=== PATIENT | male | born 1950 | race Caucasian/White ===

== ENCOUNTER 2022-07-05 19:34 | Inpatient (IN) | payer MEDICARE, BC ==
[~2022-07-05] VITALS: Ht 188 cm; Wt 165.3 kg
[2022-07-05 22:34] LABS: Hematocrit 19.7 % (41.0-53.0); Mean Corpuscular Hemoglobin 30.9 pg (28.0-32.0); Mean Corpuscular Hgb Conc. 33.7 g/dL (32.0-36.0); Mean Corpuscular Volume 91.6 fL (80.0-100.0); Red Blood Cells 2.15 10^6/uL (4.5-5.90); Red Cell Distribution Width 15.5 % (11.8-14.3); White Blood Cell 11.8 10^3/uL (4.4-10.8)
[2022-07-05 22:45] LABS: Hemoglobin 6.6 g/dL (13.5-17.5)
[2022-07-05 22:46] LABS: Albumin 3.3 g/dL (3.4-5.0); BUN/Creatinine Ratio 17.5; Calcium 8.4 mg/dL (8.5-10.1); Potassium 4.3 mmol/L (3.5-5.1)
[2022-07-05 22:49] LABS: Bilirubin, Total 0.7 mg/dL (0.2-1.0); Total Protein 6.5 g/dL (6.4-8.2)
[2022-07-05 22:56] LABS: INR 1.24 (0.9-1.15); Partial Thromboplastin Time 28.4 sec (24.6-33.4)
[2022-07-05 23:33] LABS: Band Neutrophils % (manual) 8; Basophils % (manual) 0 (0.0-2.0); Blast Cells 0; Eosinophils % (manual) 1 (0-7); Lymphocytes % (manual) 9 (10.0-50.0); Monocytes % (manual) 4 (0-12); Promyelocytes % 0; Reactive Lymphocytes 0
[2022-07-05 23:34] LABS: Metamyelocytes % 3; Myelocytes % 4
[2022-07-06] VITALS (7 sets, daily range): BP systolic 119–143; BP diastolic 64–87
[2022-07-06] MEDS ORDERED: ACETAMINOPHEN 325 MG TAB PO PRN (08:15)
[2022-07-06] MEDS ORDERED: DOCUSATE SOD 100 MG CAP PO PRN (08:15)
[2022-07-06] MEDS ORDERED: HYDROcodone-ACET 5/325MG TAB PO PRN (08:15)
[2022-07-06] MEDS ORDERED: ONDANSETRON HCL 4 MG/2 ML VIAL IV PRN (08:15)
[2022-07-06] MEDS ORDERED: MORPHINE SULFATE INJ 2 MG/ml SYRG IV PRN (08:15)
[2022-07-06] MEDS ORDERED: LORazepam 0.5 MG TAB PO PRN (08:15)
[2022-07-06] MEDS ORDERED: POLYETHYLENE GLYCOL 17 GM PWDR PO PRN (08:30)
[2022-07-06] MEDS ORDERED: FUROSEMIDE 20 MG/2 ML VIAL IV ONE (08:30)
[2022-07-06 09:04] LABS: Urine Bacteria NONE SEEN /hpf (None Seen); Urine Blood 1+ /uL (Negative); Urine Mucus FEW (None Seen); Urine WBC 7 /hpf (0 - 3)
[2022-07-06 09:06] LABS: Protein, Urine 41.2 mg/dL (0.0-11.9)
[2022-07-06] MEDS: PANTOPRAZOLE 40 MG TAB PO SCH ×2 (09:35→22:00)
[2022-07-06 10:06] LABS: Thyroid Stimulating Hormone 3.46 uIU/mL (0.358-3.74)
[2022-07-06 10:19] LABS: % Iron Saturation 30.9 % (20-55)
[2022-07-06] MEDS ORDERED: APIX5TAB PO (10:20)
[2022-07-06 12:18] LABS: Mean Corpuscular Hgb Conc. 32.9 g/dL (32.0-36.0); Mean Corpuscular Volume 91.2 fL (80.0-100.0)
[2022-07-06 12:20] LABS: Hematocrit 24.7 % (41.0-53.0); Hemoglobin 8.1 g/dL (13.5-17.5); Red Blood Cells 2.71 10^6/uL (4.5-5.90); Red Cell Distribution Width 15.1 % (11.8-14.3); White Blood Cell 10.9 10^3/uL (4.4-10.8)
[2022-07-06 12:26] LABS: Promyelocytes % 0; Reactive Lymphocytes 0
[2022-07-06 12:27] LABS: Blast Cells 0
[2022-07-06 12:52] LABS: Band Neutrophils % (manual) 1; Basophils % (manual) 1 (0.0-2.0); Eosinophils % (manual) 3 (0-7); Lymphocytes % (manual) 6 (10.0-50.0); Metamyelocytes % 2; Monocytes % (manual) 4 (0-12); Myelocytes % 3
[2022-07-06] MEDS ORDERED: POLYETHYLENE GLYCOL 17 GM PWDR PO ONE (13:30)
[2022-07-06] MEDS: SODIUM CHLOR 0.9% PF (SALINE LOCK) 10ML VIAL/SYR IV SCH ×2 (13:38→22:10)
[2022-07-06] MEDS ORDERED: SIMV-8 PO (14:12)
[2022-07-06] MEDS ORDERED: [UNRECOGNIZED DRUG - CODE] PO (14:12)
[2022-07-06 15:38] LABS: Albumin 3.2 g/dL (3.4-5.0); Calcium 8.4 mg/dL (8.5-10.1); Potassium 4.2 mmol/L (3.5-5.1)
[2022-07-06 15:42] LABS: BUN/Creatinine Ratio 16.3; Bilirubin, Total 0.8 mg/dL (0.2-1.0); Total Protein 6.4 g/dL (6.4-8.2)
[2022-07-06 15:48] LABS: Folate (Folic Acid) > 24.00 ng/mL (5.38-24)
[2022-07-07 05:00] VITALS: BP 127/77
[2022-07-07] MEDS: SODIUM CHLOR 0.9% PF (SALINE LOCK) 10ML VIAL/SYR IV SCH ×2 (05:39→13:59)
[2022-07-07 06:23] LABS: Eosinophils # (auto) 0 10 ^3/uL (0-0.8)
[2022-07-07 06:25] LABS: Basophils # (auto) 0 10 ^3/uL (0-0.2); Basophils % (auto) 0.5 % (0.0-2.0); Eosinophils % (auto) 0.6 % (0.0-7.0); Hematocrit 23.3 % (41.0-53.0); Lymphocytes # (auto) 0.8 10 ^3/uL (0.4-5.4); Lymphocytes % (auto) 9.1 % (10.0-50.0); Mean Corpuscular Hemoglobin 30.6 pg (28.0-32.0); Mean Corpuscular Hgb Conc. 34.1 g/dL (32.0-36.0); Mean Corpuscular Volume 89.7 fL (80.0-100.0); Monocytes % (auto) 10.9 % (0.0-12.0); Neutrophils # (auto) 6.9 10 ^3/uL (1.6-8.6); Neutrophils % (auto) 78.9 % (37.0-80.0); Nucleated Red Blood Cells % 1.1 %; Red Cell Distribution Width 15.1 % (11.8-14.3); White Blood Cell 8.7 10^3/uL (4.4-10.8)
[2022-07-07 06:43] LABS: Calcium 8.4 mg/dL (8.5-10.1); Potassium 4.1 mmol/L (3.5-5.1)
[2022-07-07 06:46] LABS: BUN/Creatinine Ratio 18.8
[2022-07-07 07:30] VITALS: BP 144/83
[2022-07-07 08:00] VITALS: BP 128/62
[2022-07-07] MEDS: PANTOPRAZOLE 40 MG TAB PO SCH ×2 (08:37→08:44)
[2022-07-07 13:00] VITALS: BP 129/70
[2022-07-07 13:44] VITALS: BP 144/83
== END 2022-07-07 14:00 | disposition home or self-care (01) | DRG 811 ==
LOC: ER 19:34 → OVERFLOW 07-06 08:17 → WEST WING 07-06 12:22
PROVIDERS: ADMIT Internal Medicine; ATTEND Internal Medicine
PROC: 30233N1 Transfusion of Nonautologous Red Blood Cells into Peripheral Vein, Percutaneous Approach (ICD-10-PCS; principal; 2022-07-06)
DX: D64.9 Anemia, unspecified (principal); I50.41 Acute combined systolic (congestive) and diastolic (congestive) heart failure; N17.0 Acute kidney failure with tubular necrosis; E44.0 Moderate protein-calorie malnutrition; Z68.42 Body mass index [BMI] 45.0-49.9, adult; I13.0 Hypertensive heart and chronic kidney disease with heart failure and stage 1 through stage 4 chronic kidney disease, or unspecified chronic kidney disease; Z20.822 Contact with and (suspected) exposure to COVID-19; E11.22 Type 2 diabetes mellitus with diabetic chronic kidney disease; E66.01 Morbid (severe) obesity due to excess calories; Z96.659 Presence of unspecified artificial knee joint; C67.9 Malignant neoplasm of bladder, unspecified; N18.2 Chronic kidney disease, stage 2 (mild); I48.91 Unspecified atrial fibrillation; Z79.01 Long term (current) use of anticoagulants; Z87.891 Personal history of nicotine dependence
CPT/HCPCS: 36415; 71046; 80048; 80053; 81001; 82570; 82607; 82746; 83036; 83540; 83550; 83615; 83880; 83935; 84156; 84300; 84443; 85007; 85025; 85027; 85045; 85610; 85730; 86850; 86900; 86901; 86920; 93306; 93970; 96374; 96375; G0378